=== PATIENT | female | born 1960 | race Caucasian/White ===

== ENCOUNTER 2017-06-03 12:21 | Emergency (ER) | payer OTHER ==
[~2017-06-03] VITALS: Ht 160 cm; Wt 61.5 kg
[2017-06-03] MEDS ORDERED: ASPIRIN 81 MG TABLET CHEW PO ONE (12:30)
[2017-06-03 13:11] LABS: HEMATOCRIT 40.1 % (34.6-47.8); HEMOGLOBIN 13.5 g/dL (11.7-16.4); WHITE BLOOD COUNT 8.8 x10^3/uL (3.4-10)
[2017-06-03 13:22] LABS: BLOOD UREA NITROGEN 24 mg/dL (7-18)
[2017-06-03 13:28] VITALS: BP 147/87
[2017-06-03 13:28] LABS: IS PT STATUS REG ER OR PRE ER? YES
== END 2017-06-03 14:19 | disposition home or self-care (01) ==
LOC: ED 12:55
DX: R07.89 Other chest pain (principal); F41.1 Generalized anxiety disorder; R06.4 Hyperventilation
CPT/HCPCS: 36415; 71020; 80048; 82040; 84484; 85025; 93005; 99285